=== PATIENT | male | born 1945 | race Two or more races ===

== ENCOUNTER 2021-11-13 10:15 | Inpatient (IN) | payer OTHER ==
[~2021-11-13] VITALS: Ht 170.2 cm; Wt 72.6 kg
[2021-11-13] MEDS ORDERED: EFFEXOR XR75 MG PO (13:28)
[2021-11-13] MEDS ORDERED: CLONAZEPAM1 MG PO (13:29)
[2021-11-13] MEDS ORDERED: RESTOR PO (13:29)
[2021-11-13] MEDS ORDERED: SEROQ PO (13:30)
[2021-11-13] MEDS ORDERED: LIPITOR40 M1 PO (15:03)
[2021-11-13] MEDS ORDERED: ZESTRIL2.5 MG PO (15:04)
[2021-11-13] MEDS ORDERED: CARVEDILOL3.125 MG (15:04)
[2021-11-13] MEDS ORDERED: PERSANTINE50 MG PO (15:05)
[2021-11-13] MEDS ORDERED: DICYCLOMIN10 MG/5 M1 (15:05)
[2021-11-17] MEDS ORDERED: DICLOFENAC SOD100 GM (10:52)
[2021-11-17] MEDS ORDERED: METOPROLOL SUCC25 MG (10:52)
[2021-11-17] MEDS ORDERED: RESTORIL30 MG (10:52)
[2021-11-17] MEDS ORDERED: DORZOLAMIDE-TIM10 ML (10:52)
[2021-11-17] MEDS ORDERED: FAMOTIDINE40 MG (10:52)
[2021-11-17] MEDS ORDERED: QUETIAPINE FUM100 MG (10:52)
[2021-11-17] MEDS ORDERED: LATANOPROST2.5 ML (10:55)
[2021-11-17] MEDS ORDERED: PREDNISONE10 M2 (10:55)
== END 2021-11-26 19:45 | disposition home or self-care (01) | DRG 330 ==
LOC: O/R 11-17 06:24 → SURH 11-17 06:24 → LDR 11-17 10:15 → SURH 11-17 20:43
PROVIDERS: ADMIT Colon & Rectal Surgery; ATTEND Colon & Rectal Surgery
PROC: 07TC0ZZ Resection of Pelvis Lymphatic, Open Approach (ICD-10-PCS; 2021-11-17)
PROC: 0DBU0ZZ Excision of Omentum, Open Approach (ICD-10-PCS; 2021-11-17)
PROC: 0DN80ZZ Release Small Intestine, Open Approach (ICD-10-PCS; 2021-11-17)
PROC: 0DTM0ZZ Resection of Descending Colon, Open Approach (ICD-10-PCS; principal; 2021-11-17 07:00)
PROC: 4A033R1 Measurement of Arterial Saturation, Peripheral, Percutaneous Approach (ICD-10-PCS; 2021-11-19)
PROC: 3E0F7GC Introduction of Other Therapeutic Substance into Respiratory Tract, Via Natural or Artificial Opening (ICD-10-PCS; 2021-11-19)
PROC: 4A12X4Z Monitoring of Cardiac Electrical Activity, External Approach (ICD-10-PCS; 2021-11-19)
PROC: BB24Y0Z Computerized Tomography (CT Scan) of Bilateral Lungs using Other Contrast, Unenhanced and Enhanced (ICD-10-PCS; 2021-11-20)
PROC: BW21ZZZ Computerized Tomography (CT Scan) of Abdomen and Pelvis (ICD-10-PCS; 2021-11-21)
DX: C18.6 Malignant neoplasm of descending colon (principal); K56.51 Intestinal adhesions [bands], with partial obstruction; J95.89 Other postprocedural complications and disorders of respiratory system, not elsewhere classified; J98.11 Atelectasis; R09.02 Hypoxemia; Z20.822 Contact with and (suspected) exposure to COVID-19

== ENCOUNTER 2021-11-15 07:18 | Day surgery (SDC) | payer OTHER ==
[~2021-11-15 07:18] MED LIST: CARVEDILOL3.125 MG; CLONAZEPAM1 MG PO; DICYCLOMIN10 MG/5 M1; EFFEXOR XR75 MG PO; LIPITOR40 M1 PO; PERSANTINE50 MG PO; RESTOR PO; SEROQ PO; ZESTRIL2.5 MG PO
== END 2021-11-15 14:45 | disposition home or self-care (01) ==
LOC: AMB-ENDOS 07:18
PROVIDERS: ATTEND Colon & Rectal Surgery
DX: C19 Malignant neoplasm of rectosigmoid junction (principal); Z20.822 Contact with and (suspected) exposure to COVID-19; K57.30 Diverticulosis of large intestine without perforation or abscess without bleeding; K64.4 Residual hemorrhoidal skin tags